=== PATIENT | male | born 1980 | race Caucasian/White ===

== ENCOUNTER 2016-10-26 21:21 | Emergency (ER) | payer OTHER ==
[2016-10-26 21:24] VITALS: BP 127/87; PULSE 77; TEMP 98.4; BMI 21.4
[2016-10-26] MEDS ORDERED: IBUPROFEN 400 MG TABLET (FP) PO ONE (22:03)
--- NOTE | 2016-10-26 22:50 | PDOC ---
History of Present Illness - General Chief Complaint: Injury Stated Complaint: INJURY Time Seen by Provider: 10/26/16 21:33 History Source: Patient - History of Present Illness Occurred: reports: this afternoon Lower Extremity Pain Location: left: 4th toe Past History - Past Medical History Allergies/Adverse Reactions: Allergies Allergy/AdvReac Type Severity Reaction Status Date / Time No Known Allergies Allergy Verified 10/26/16 21:24 Home Medications: Ambulatory Orders NK [No Known Home Medication] 12/05/13 Other medical history: denies - Immunization History Immunization Up to Date: Yes - Psycho/Social/Smoking Cessation Hx Anxiety: No Suicidal Ideation: No Smoking History: Never smoked Hx Alcohol Use: No Substance Use Type: None Review of Systems - Review of Systems Constitutional: No: Chills, Fever Musculoskeletal: Yes: Joint Swelling (diffuse swelling and ttp to L 4th toe, no erythema, warmth, no open wound) *Physical Exam - Vital Signs Last Vital Signs Temp Pulse Resp BP Pulse Ox 98.4 F 77 18 127/87 99 10/26/16 21:22 10/26/16 21:22 10/26/16 21:22 10/26/16 21:22 10/26/16 21:22 ED Treatment Course - RADIOLOGY Radiology Studies Ordered: Category Date Time Status TOE(S) LEFT [RAD] Stat Radiology 10/26/16 22:03 Completed - Medications Given in the ED: ED Medications Discontinued Medications Generic Name Dose Route Start Last Admin Trade Name Freq PRN Reason Stop Dose Admin Ibuprofen 800 mg 10/26/16 22:03 10/26/16 22:07 Motrin - PO 10/26/16 22:04 800 mg ONCE ONE Administration Medical Decision Making - Medical Decision Making 10/26/16 22:45 36-year-old male, denies any past medical history, here with pain and swelling to left 4th toe that patient noticed today. States pain now radiating up to his foot and leg. Patient denies any specific injury but states "I am clumsy and I hurt myself all the time". No fever or chills and no history of cellulitis in the past. Denies any bites See exam Pain and swelling to L 5th toe No specific trauma XR neg for fx Possibly sprain No s/o infxn at this time -pia tape placed for comfort -motrin OTC -return precautions given 10/26/16 22:51 *DC/Admit/Observation/Transfer Diagnosis at time of Disposition: Toe pain Qualifiers: Laterality: left Qualified Code(s): M79.675 - Pain in left toe(s) - Discharge Dispostion Disposition: HOME Condition at time of disposition: Good - Patient Instructions Printed Discharge Instructions: Toe Sprain Additional Instructions: Your xray was negative for fracture. It is possible that you sustained a sprain to your toe. Keep pia tape in place for comfort and take Motrin as needed. If symptoms persist or worsen, return to the ER
== END 2016-10-26 22:54 | disposition home or self-care (01) ==
LOC: JERFT 21:21
PROC: 2W3VXYZ Immobilization of Left Toe using Other Device (ICD-10-PCS; principal; 2016-10-26)
DX: M79.675 Pain in left toe(s) (principal)
CPT/HCPCS: 73660-TC; 99281-25